=== PATIENT | female | born 1970 | race Caucasian/White ===

== ENCOUNTER 2024-05-01 16:01 | Outpatient (CLI) | payer BC ==
[2024-05-01 16:34] LABS: #Basophils 0.05 10x3/uL (0.0-0.2); #Eosinophils 0.09 10x3/uL (0.0-0.5); #Monocytes 0.58 10x3/uL (0.0-1.1); #Neutrophils 3.35 10x3/uL (1.5-8.4); %Basophils 0.9 % (0.0-2.0); %Eosinophils 1.7 % (0.0-6.0); %Lymphocytes 23.6 % (18.0-47.0); %Monocytes 10.9 % (0.0-10.0); %Neutrophils 62.7 % (40.0-75.0); Hematocrit 38.6 % (34.9-44.5); Hemoglobin 13.3 g/dL (12.0-15.5); Mean Corpuscular HGB CONC 34.5 g/dL (32.0-36.0); Mean Corpuscular Volume 95.8 fL (81.6-98.3); Mean Platelet Volume 9.3 fL (7.4-10.4); Platelet Count 217 10x3/uL (150-450); RBC Distribution Width 12.6 % (11.5-14.5); Red Blood Cell (RBC) Count 4.03 10x6/uL (3.90-5.03); White Blood Cell (WBC) Count 5.3 10x3/uL (3.5-10.5)
[2024-05-01 16:49] LABS: Anion Gap 12 mmol/L (10-20); BUN (Urea Nitrogen) 11 mg/dL (9.8-20.1); Calc. Creatinine Clearance 0 mL/min (70-130); Calcium 8.9 mg/dL (7.8-10.44); Carbon Dioxide 26 mmol/L (22-29); Chloride 101 mmol/L (98-107); Estimated GFR 97; Glucose 91 mg/dL (70-105); Potassium 3.9 mmol/L (3.5-5.1); Sodium 135 mmol/L (136-145)
== END 2024-05-01 16:02 | disposition home or self-care (01) ==
LOC: CSHLAB 16:01
PROVIDERS: ATTEND Specialist
DX: Z01.812 Encounter for preprocedural laboratory examination (principal); C50.912 Malignant neoplasm of unspecified site of left female breast
CPT/HCPCS: 80048; 85025

== ENCOUNTER 2024-05-02 06:31 | Day surgery (SDC) | payer BC ==
[2024-05-01 16:21] VITALS: BMI 24.3
[2024-05-02] MEDS ORDERED: Ketorolac Tromethamine 30 MG (1 mL) VIAL ONE (09:59)
[2024-05-02] MEDS ORDERED: Acetaminophen 500 MG TAB ONE (10:00)
[2024-05-02] MEDS ORDERED: PROPOFOL 20 ML ONE (11:27)
[2024-05-02] MEDS ORDERED: Bupivacaine 0.25% HCL 30 ML VIAL ONE (11:31)
[2024-05-02] MEDS ORDERED: Isosulfan Blue 50 MG/5 ML VIAL ONE (11:31)
[2024-05-02] MEDS ORDERED: Lidocaine 1% w/Epinephrine 1:200K 30 ML VIAL ONE (11:32)
[2024-05-02] MEDS ORDERED: CEFAZOLIN 2 GM VIAL ONE (11:32)
[2024-05-02] MEDS ORDERED: Midazolam HCl 2 mg/2 ml Vial ONE (12:10)
[2024-05-02] MEDS ORDERED: Ondansetron PF 4 MG/2 ML Vial ONE (12:32)
[2024-05-02] MEDS ORDERED: Dexamethasone 4 mg/ml Vial ONE (12:32)
[2024-05-02] MEDS ORDERED: fentaNYL 50 mcg/mL 1 mL Vial ONE ×4 (12:35→14:04)
[2024-05-02] MEDS ORDERED: ePHEDrine Sulfate 50 MG/10 ML VIAL ONE (12:52)
== END 2024-05-02 15:42 | disposition home or self-care (01) ==
LOC: CSHSDC 06:31
PROVIDERS: ATTEND Specialist
PROC: 0HBU3ZX Excision of Left Breast, Percutaneous Approach, Diagnostic (ICD-10-PCS; principal; 2024-05-02)
DX: C50.412 Malignant neoplasm of upper-outer quadrant of left female breast (principal); F41.9 Anxiety disorder, unspecified; F90.9 Attention-deficit hyperactivity disorder, unspecified type; G47.33 Obstructive sleep apnea (adult) (pediatric); Z79.899 Other long term (current) drug therapy
CPT/HCPCS: 88307; A6258; C1713; J0665; J1100; J1885; J2250; J2405; J2704; J3010; Q9968

== ENCOUNTER 2024-05-02 16:26 | Day surgery (SDC) | payer BC | END 2024-05-02 17:27 | disposition home or self-care (01) | LOC: CSHNM 16:26 | PROVIDERS: ATTEND Specialist | PROC: 0H9U3ZX Drainage of Left Breast, Percutaneous Approach, Diagnostic (ICD-10-PCS; principal; 2024-05-02) | DX: C50.912 Malignant neoplasm of unspecified site of left female breast (principal) | CPT/HCPCS: 19281; 76098; 78195; A9541 ==

== ENCOUNTER 2025-04-01 10:33 | Outpatient (CLI) | payer BC | END 2025-04-01 10:34 | disposition home or self-care (01) | LOC: CSHMAMMO 10:33 | PROVIDERS: ATTEND Internal Medicine Hematology & Oncology | DX: Z09 Encounter for follow-up examination after completed treatment for conditions other than malignant neoplasm (principal); Z85.3 Personal history of malignant neoplasm of breast | CPT/HCPCS: 77066; G0279 ==